=== PATIENT | male | born 1995 | race African-American/Black ===

== ENCOUNTER 2019-05-18 01:13 | Emergency (ER) | payer SELFPAY ==
[~2019-05-18] VITALS: Ht 177.8 cm; Wt 68.0 kg
[2019-05-18 01:15] VITALS: BP 126/73
[2019-05-18] MEDS ORDERED: LIDOCAINE 2% 20 ML VIAL. IJ ONE (02:00)
[2019-05-18] MEDS ORDERED: CLIN300C8 PO (02:24)
--- NOTE | 2019-05-18 02:52 | PHYS DOC ---
Past Medical History Past Medical History: No Pertinent History Past Surgical History: No Surgical History Alcohol Use: None Drug Use: Marijuana Adult General Chief Complaint Chief Complaint: EARACHE/EAR PAIN HPI HPI Patient is a 24 year old m with ear pain. onset a few days ago feels a bump there happened three months ago but it went away on its own Review of Systems Review of Systems Constitutional: Denies fever or chills [] Eyes: Denies change in visual acuity, redness, or eye pain [] HENT: Denies nasal congestion or sore throat [] Respiratory: Denies cough or shortness of breath [] Cardiovascular: No additional information not addressed in HPI [] GI: Denies abdominal pain, nausea, vomiting, bloody stools or diarrhea [] : Denies dysuria or hematuria [] Musculoskeletal: Denies back pain or joint pain [] Integument: Denies rash or skin lesions [] Neurologic: Denies headache, focal weakness or sensory changes [] Endocrine: Denies polyuria or polydipsia [] All other systems were reviewed and found to be within normal limits, except as documented in this note. Current Medications Current Medications Current Medications Medications (Trade) Dose Ordered Sig/Sree Start Time Stop Time Status Last Admin Dose Admin Lidocaine HCl 20 ml 1X ONCE 05/18/19 02:00 05/18/19 02:01 DC 05/18/19 01:57 20 ML Allergies Allergies Allergies Coded Allergies Type Severity Reaction Last Updated Verified Iodine and Iodide Containing Produc Allergy Intermediate 05/18/19 Yes Physical Exam Physical Exam Constitutional: Well developed, well nourished, no acute distress, non-toxic appearance. [] HENT: Normocephalic, atraumatic, rigth ear just behind tragus there is a 2 by 3 cm area of fluctuance, mild erythema and ttp difficult to see tm due to this but visualized was normal Eyes: PERRLA, EOMI, conjunctiva normal, no discharge. [] Neck: Normal range of motion, no tenderness, supple, no stridor. [] Back: No tenderness, no CVA tenderness. [] Extremities: No tenderness, no cyanosis, no clubbing, ROM intact, no edema. [] Neurologic: Alert and oriented X 3, normal motor function, normal sensory function, no focal deficits noted. [] Psychologic: Affect normal, judgement normal, mood normal. [] Current Patient Data Vital Signs Vital Signs Date Time Temp Pulse Resp B/P (MAP) Pulse Ox O2 Delivery O2 Flow Rate FiO2 05/18/19 01:15 97.8 61 16 126/73 (90) 99 Room Air 97.8 EKG EKG [] Radiology/Procedures Radiology/Procedures [] Course & Med Decision Making Course & Med Decision Making Pertinent Labs and Imaging studies reviewed. (See chart for details) []procedure note i and d verbal consent lidocaine 2 percent 1 ml, betadine, 1 cm incision made sebaceous material and pus removed pt tolerated well wound packed return prec discussed wound care instructions given pt tolerated well Dragon Disclaimer Dragon Disclaimer This electronic medical record was generated, in whole or in part, using a voice recognition dictation system. Departure Departure Impression: Primary Impression: Abscess Disposition: 01 HOME, SELF-CARE Condition: STABLE Patient Instructions: Abscess, Care After Scripts Clindamycin Hcl (CLINDAMYCIN HCL) 300 Mg Capsule 1 CAP PO TID, #21 CAP Prov: ADENIKE ABDUL MD 05/18/19 ADENIKE ABDUL MD May 18, 2019 02:52
== END 2019-05-18 03:00 | disposition home or self-care (01) ==
LOC: ER 01:13
DX: H60.01 Abscess of right external ear (principal)
CPT/HCPCS: 69000; 99284; J2001; 10060; 99283

== ENCOUNTER 2020-05-19 12:24 | Emergency (ER) | payer OTHER ==
[~2020-05-19] VITALS: Ht 177.8 cm; Wt 63.6 kg
[~2020-05-19 12:24] MED LIST: CLIN300C8 PO
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
[2020-05-19] MEDS ORDERED: CYCL10TA2 PO (15:25)
[2020-05-19] MEDS ORDERED: NAPR-514 PO (15:25)
== END 2020-05-19 12:55 | disposition left against medical advice (07) ==
LOC: ER 12:24
DX: G89.11 Acute pain due to trauma (principal); M54.2 Cervicalgia; M25.551 Pain in right hip; M25.531 Pain in right wrist; F17.200 Nicotine dependence, unspecified, uncomplicated; F12.90 Cannabis use, unspecified, uncomplicated; Z91.041 Radiographic dye allergy status; V49.88XA Car occupant (driver) (passenger) injured in other specified transport accidents, initial encounter; Y93.89 Activity, other specified; Y92.413 State road as the place of occurrence of the external cause; Y99.8 Other external cause status
CPT/HCPCS: 99283

== ENCOUNTER 2020-05-19 13:17 | Emergency (ER) | payer OTHER ==
[~2020-05-19] VITALS: Ht 177.8 cm; Wt 68.1 kg
[2020-05-19 13:42] VITALS: BP 132/80
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
[2020-05-19 14:25] LABS: BILIRUBIN,URINE NEGATIVE (NEG); CLARITY,URINE CLOUDY; COLOR,URINE YELLOW; NITRITE,URINE NEGATIVE (NEG); PROTEIN,URINE 30 mg/dL (NEG-TRACE)
[2020-05-19] MEDS ORDERED: HYDROcodone/APAP 5/325MG 1 TAB TABLET PO ONE (14:30)
[2020-05-19 14:42] LABS: AMORPHOUS SEDIMENT,UR PRESENT /HPF; BACTERIA,URINE FEW /HPF (0-FEW); RBC,URINE OCC /HPF (0-2); SQUAMOUS EPITHELIAL CELL,UR FEW /LPF; WBC,URINE OCC /HPF (0-4)
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
[2020-05-19] MEDS ORDERED: CYCL10TA2 PO (15:25)
[2020-05-19] MEDS ORDERED: NAPR-514 PO (15:25)
== END 2020-05-19 15:39 | disposition home or self-care (01) ==
LOC: ER 13:17
DX: S16.1XXA Strain of muscle, fascia and tendon at neck level, initial encounter (principal); M25.551 Pain in right hip; M25.531 Pain in right wrist; F17.200 Nicotine dependence, unspecified, uncomplicated; F12.90 Cannabis use, unspecified, uncomplicated; V49.9XXA Car occupant (driver) (passenger) injured in unspecified traffic accident, initial encounter; Y93.89 Activity, other specified; Y92.89 Other specified places as the place of occurrence of the external cause; Y99.8 Other external cause status
CPT/HCPCS: 70450; 72125; 73110; 73502; 81001; 99285

== ENCOUNTER 2020-05-19 17:58 | Emergency (ER) | payer OTHER ==
[~2020-05-19] VITALS: Ht 182.9 cm; Wt 68.1 kg
[~2020-05-19 17:58] MED LIST changes: +CYCL10TA2 PO; +NAPR-514 PO
[2020-05-19 18:36] VITALS: BP 128/77
[2020-05-19] MEDS ORDERED: NAPROXEN 500 MG TABLET PO STA (18:36)
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
[2020-05-19] MEDS ORDERED: NAPROXEN 500 MG TABLET ONE (18:41)
[2020-05-19] MEDS ORDERED: ACETAMINOPHEN 500 MG TABLET PO ONE (18:45)
== END 2020-05-19 18:46 | disposition home or self-care (01) ==
LOC: ER 17:58
DX: M25.531 Pain in right wrist (principal); M25.551 Pain in right hip; F17.200 Nicotine dependence, unspecified, uncomplicated; F12.90 Cannabis use, unspecified, uncomplicated; Z88.1 Allergy status to other antibiotic agents
CPT/HCPCS: 29125; 99283

== ENCOUNTER 2020-07-18 21:28 | Emergency (ER) | payer OTHER ==
[~2020-07-18] VITALS: Ht 177.8 cm; Wt 72.7 kg
[2020-07-18 22:00] VITALS: BP 114/79
[2020-07-18] MEDS ORDERED: LIDOCAINE 1% PF 2 ML VIAL. INJ ONE (22:00)
[2020-07-18] MEDS ORDERED: CLIN150C14 PO (22:09)
[2020-07-18] MEDS ORDERED: HYDR-2761 PO (22:09)
--- NOTE | 2020-07-18 22:10 | PHYS DOC ---
Past Medical History Past Medical History: No Pertinent History Past Surgical History: No Surgical History Smoking Status: Current Every Day Smoker Alcohol Use: None Drug Use: Marijuana General Adult EDM: Chief Complaint: ABSCESS HPI: HPI: Patient is a 25 year old AA male who presents the emergency department with complaints of a cyst inside of his right ear. Patient states he is been seen here before for similar problem. He denies any drainage, fever, or decreased hearing in the affected ear. He rates the pain a 10 out of 10 on the pain scale, he denies any alleviating factors the pain is worse if the area is touched. Review of Systems: Review of Systems: Complete ROS is negative unless otherwise stated in the HPI. Heart Score: Risk Factors: Risk Factors: DM, Current or recent (<one month) smoker, HTN, HLP, family history of CAD, obesity. Risk Scores: Score 0 - 3: 2.5% MACE over next 6 weeks - Discharge Home Score 4 - 6: 20.3% MACE over next 6 weeks - Admit for Clinical Observation Score 7 - 10: 72.7% MACE over next 6 weeks - Early Invasive Strategies Current Medications: Current Medications Medications (Trade) Dose Ordered Sig/Sree Start Time Stop Time Status Last Admin Dose Admin Lidocaine HCl (Xylocaine-Mpf 1% 2ml Vial) 2 ml 1X ONCE 07/18/20 22:00 07/18/20 22:01 07/18/20 21:58 2 ML Allergies: Allergies: Allergies Coded Allergies Type Severity Reaction Last Updated Verified Iodine and Iodide Containing Produc Allergy Intermediate 05/18/19 Yes Physical Exam: PE: Constitutional: Well developed, well nourished, no acute distress, non-toxic appearance. [] HENT: Normocephalic, atraumatic, bilateral external ears normal, nose normal; 1 cm diameter swollen, fluctuant area noted just behind the tragus inside the patient's right ear concerning for infected cyst/abscess, no purulent drainage, no bleeding, [] Eyes: PERRLA, EOMI, conjunctiva normal, no discharge. [] Neck: Normal range of motion, no stridor. [] Cardiovascular:Heart rate regular rhythm Lungs & Thorax: Respirations even and unlabored, no retractions, no respiratory distress Skin: Warm, dry, no rash. [] Extremities: No cyanosis, ROM intact, no edema. [] Neurologic: Alert and oriented X 3, no focal deficits noted. [] Psychologic: Affect normal, judgement normal, mood normal. [] EKG: EKG: [] Radiology/Procedures: Radiology/Procedures: Using a 22-gauge needle 1% lidocaine was injected into the fluctuant area behind the patient's right tragus, a minimal amount of purulent liquid was expressed from the site. The patient did not tolerate the procedure well he reported increased pain and asked to discontinue the procedure Course & Med Decision Making: Course & Med Decision Making Pertinent Labs and Imaging studies reviewed. (See chart for details) [] Dragon Disclaimer: Dragon Disclaimer: This electronic medical record was generated, in whole or in part, using a voice recognition dictation system. Departure Departure Impression: Primary Impression: Abscess of right ear canal Disposition: HOME, SELF-CARE Condition: STABLE Referrals: NO PCP (PCP) Patient Instructions: Abscess, [id number] Additional Instructions: Fill the prescription(s) and use as directed. You may take ibuprofen as needed for pain. Apply warm, moist heat to the area to help decrease discomfort. Follow up with your primary care doctor or Dr. Solomon for further management of your condition, return to the ER sooner if your symptoms worsen or you develop a fever. Scripts Hydrocodone Bit/Acetaminophen (HYDROCODONE-APAP 5-325 ) 1 Tab Tablet 0.5-1 TAB PO PRN Q6HRS PRN for SEVERE PAIN 7-10 for 3 Days, #6 TAB 0 Refills Prov: MARVIN GARY APRN 07/18/20 Clindamycin Hcl (CLINDAMYCIN HCL) 150 Mg Capsule 450 MG PO TID for 7 Days, #63 CAP 0 Refills Prov: MARVIN GARY APRN 07/18/20 Justicifation of Admission Dx: Justifications for Admission: Justification of Admission Dx: N/A MARVIN GARY APRN Jul 18, 2020 22:10
== END 2020-07-18 22:27 | disposition home or self-care (01) ==
LOC: ER 21:28
DX: H66.41 Suppurative otitis media, unspecified, right ear (principal); R60.0 Localized edema; F12.90 Cannabis use, unspecified, uncomplicated; F17.200 Nicotine dependence, unspecified, uncomplicated; Z91.041 Radiographic dye allergy status
CPT/HCPCS: 10060; 99283; J3490

== ENCOUNTER 2021-04-11 18:57 | Emergency (ER) | payer SELFPAY ==
[~2021-04-11] VITALS: Ht 172.7 cm; Wt 74.1 kg
[~2021-04-11 18:57] MED LIST changes: +CLIN150C15 PO; -CLIN300C8 PO; +CLIN300C9 PO; +HYDR-2761 PO
[2021-04-11 19:30] VITALS: BP 120/52
--- NOTE | 2021-04-11 20:08 | RAD ---
Right fifth finger x-rays 3 views HISTORY: Right fifth finger pain after a fall injury. FINDINGS: There is a small cortical avulsion from the palmar cortex at the base of the fifth intermed iate phalanx at the PIP joint likely a small avulsion involving the volar plate or the flexor superfi cialis tendon. No dislocation. Soft tissues unremarkable. IMPRESSION: Fracture at the base of the fifth intermediate phalanx at the PIP joint as described debra elias. Electronically signed by: Kj Bustos MD (04/11/2021 8:05 PM) [facility]
--- NOTE | 2021-04-11 20:30 | PHYS DOC ---
Past Medical History Past Medical History: Other Additional Past Medical Histor: CONCUSSION, PTSD, RIGHT WRIST FRACTURE (RICHY BEGUM Kierra ACQUISITIONS ANALYST) Past Surgical History: No Surgical History (RICHY BEGUM Kierra ACQUISITIONS ANALYST) Smoking Status: Current Every Day Smoker Alcohol Use: None Drug Use: Marijuana (RICHY BEGUM ACQUISITIONS ANALYST) General Adult EDM: Chief Complaint: FINGER INJURY HPI: HPI: Patient is a 25 year old male who presents the ED today with a right pinky finger injury. Patient said he was playing basketball and he fell landing on his right pinky finger. Patient is right-handed. (RICHY BEGUM ACQUISITIONS ANALYST) Review of Systems: Review of Systems: Constitutional: Denies fever or chills. [] Musculoskeletal: Right hand and pinky finger with no obvious deformity. Tenderness diffusely throughout the finger. Full range of motion to the right pinky finger. Adequate ulnar sensation to the right pinky finger. +2 right radial pulse. Cap refill less than 2 seconds the right pinky finger Integument: Denies rash. [] Neurologic: Denies headache, focal weakness or sensory changes. [] Endocrine: Denies polyuria or polydipsia. [] Lymphatic: Denies swollen glands. [] Psychiatric: Denies depression or anxiety. [] (SHYRICHY Kierra ACQUISITIONS ANALYST) Heart Score: C/O Chest Pain: N/A Risk Factors: Risk Factors: DM, Current or recent (<one month) smoker, HTN, HLP, family history of CAD, obesity. Risk Scores: Score 0 - 3: 2.5% MACE over next 6 weeks - Discharge Home Score 4 - 6: 20.3% MACE over next 6 weeks - Admit for Clinical Observation Score 7 - 10: 72.7% MACE over next 6 weeks - Early Invasive Strategies (HOMERTavonRICHY Kierra ACQUISITIONS ANALYST) Allergies: Allergies: Allergies Coded Allergies Type Severity Reaction Last Updated Verified Iodine and Iodide Containing Produc Allergy Intermediate 05/18/19 Yes (SHYRICHY Kierra ACQUISITIONS ANALYST) Physical Exam: PE: Constitutional: Well developed, well nourished, no acute distress, non-toxic appearance. [] HENT: Normocephalic, atraumatic, bilateral external ears normal, oropharynx moist, no oral exudates, nose normal. [] Eyes: PERRLA, EOMI, conjunctiva normal, no discharge. [] Neck: Normal range of motion, no tenderness, supple, no stridor. [] Cardiovascular:Heart rate regular rhythm, no murmur [] Lungs & Thorax: Bilateral breath sounds clear to auscultation [] Abdomen: Bowel sounds normal, soft, no tenderness, no masses, no pulsatile masses. [] Skin: Warm, dry, no erythema, no rash. [] Back: No tenderness, no CVA tenderness. [] Extremities: No tenderness, no cyanosis, no clubbing, ROM intact, no edema. [] Neurologic: Alert and oriented X 3, normal motor function, normal sensory function, no focal deficits noted. [] Psychologic: Affect normal, judgement normal, mood normal. [] (RICHY BEGUM APRN) Current Patient Data: Vital Signs: Vital Signs Date Time Temp Pulse Resp B/P (MAP) Pulse Ox O2 Delivery O2 Flow Rate FiO2 04/11/21 19:30 98.5 57 20 120/52 (74) 96 Room Air 98.5 (RICHY BEGUM APRN) EKG: EKG: [] (RICHY BEGUM APRN) Radiology/Procedures: Radiology/Procedures: []PROCEDURE: FINGER(S) RIGHT Right fifth finger x-rays 3 views HISTORY: Right fifth finger pain after a fall injury. FINDINGS: There is a small cortical avulsion from the palmar cortex at the base of the fifth intermediate phalanx at the PIP joint likely a small avulsion involving the volar plate or the flexor superficialis tendon. No dislocation. Soft tissues unremarkable. IMPRESSION: Fracture at the base of the fifth intermediate phalanx at the PIP joint as described above. Electronically signed by: John Bustos MD (04/11/2021 8:05 PM) [facility] [place] DICTATED and SIGNED BY: JOHN BUSTOS MD DATE: 04/11/[id number] 0 (RICHY BEGUM APRN) Course & Med Decision Making: Course & Med Decision Making Pertinent Labs and Imaging studies reviewed. (See chart for details) This a 25-year-old male patient presenting to the ED today with right pinky finger injury after falling. Right pinky finger x-rays interpreted by r adiologist were noted for fracture at the base of the fifth intermediate phalanx at the PIP joint. Patient was placed in a finger splint by the ED RN, neurovascular exam done by me is normal. Ice elevation encouraged. He has an orthopedic doctor he is following up for wrist fracture. Instructed to follow- up with him. (RICHY BEGUM APRN) Course & Med Decision Making The chart was reviewed. Care and treatment plan made by midlevel provider. I was available for consult. (YASIR LUCIANO DO) Dragon Disclaimer: Dragon Disclaimer: This electronic medical record was generated, in whole or in part, using a voice recognition dictation system. (RICHY BEGUM APRN) Departure Departure Impression: Primary Impression: Fracture of phalanx of finger of right hand Qualified Codes: S62.656A - Nondisplaced fracture of middle phalanx of right little finger, initial encounter for closed fracture Disposition: HOME / SELF CARE / HOMELESS Condition: STABLE Referrals: NO PCP (PCP) follow up with your orthopedic doctor Patient Instructions: Finger Fracture (Phalangeal)-SportsMed Additional Instructions: You have fracture of your right pinky finger. Please follow-up with the orthopedic doctor. Try to ice and elevate the extremity RICHY BEGUM APRN Apr 11, 2021 20:30 YASIR LUCIANO DO Apr 12, 2021 20:20
== END 2021-04-11 20:50 | disposition home or self-care (01) ==
LOC: ER 18:57
DX: S62.656A Nondisplaced fracture of middle phalanx of right little finger, initial encounter for closed fracture (principal); F17.200 Nicotine dependence, unspecified, uncomplicated; Z91.041 Radiographic dye allergy status; W18.39XA Other fall on same level, initial encounter; Y93.67 Activity, basketball; Y92.89 Other specified places as the place of occurrence of the external cause; Y99.8 Other external cause status
CPT/HCPCS: 29130; 73140; 99283

== ENCOUNTER 2022-02-24 11:16 | Emergency (ER) | payer SELFPAY ==
[~2022-02-24] VITALS: Ht 177.8 cm; Wt 68.7 kg
[~2022-02-24 11:16] MED LIST changes: +CLIN-94 PO; -CLIN150C15 PO; +CLIN150C16 PO; -CLIN300C9 PO; +CYCL10TA19 PO; -CYCL10TA2 PO
[2022-02-24 11:24] VITALS: BP 110/72
--- NOTE | 2022-02-24 21:08 | PHYS DOC ---
Past Medical History Past Medical History: Other Additional Past Medical Histor: CONCUSSION, PTSD, RIGHT WRIST FRACTURE (RONNA SPARKS APRN) Past Surgical History: No Surgical History Additional Past Surgical Histo: WRIST SURGERY (RONNA SPARKS STATISTICS INTERN) Smoking Status: Current Every Day Smoker Alcohol Use: None Drug Use: Marijuana (RONNA SPARKS APRN) General Adult EDM: Chief Complaint: HEADACHE HPI: HPI: Patient is a 26-year-old male that presents today with headache and nosebleed. Patient states she has had headaches on and off since Monday, he said he woke up this morning and had a nosebleed, he states he held pressure onto the nose and it stopped bleeding. He states that approximately 2 years ago he had a concus mary and was seen in orthopedic office had some procedures done with his wrist and had medications left over from that such as Fioricet, cyclobenzaprine, meloxicam, and steroids, he said he has taken those medications to help with the pain but that has not relieved the pain. Patient presents here for further evaluation and treatment of his headache. Patient does have 2 children with him today under the age of 4 and he drove himself to the emergency department. (RONNA SPARKS STATISTICS INTERN) Review of Systems: Review of Systems: Constitutional: Denies fever or chills. [] Eyes: Denies change in visual acuity. [] HENT: nose bleed Denies nasal congestion or sore throat. [] Respiratory: Denies cough or shortness of breath. [] Cardiovascular: Denies chest pain or edema. [] GI: Denies abdominal pain, nausea, vomiting, bloody stools or diarrhea. [] : Denies dysuria. [] Musculoskeletal: Denies back pain or joint pain. [] Integument: Denies rash. [] Neurologic: headache, denies focal weakness or sensory changes. [] Endocrine: Denies polyuria or polydipsia. [] Lymphatic: Denies swollen glands. [] Psychiatric: Denies depression or anxiety. [] (RONNA SPARKS STATISTICS INTERN) Heart Score: C/O Chest Pain: No Risk Factors: Risk Factors: DM, Current or recent (<one month) smoker, HTN, HLP, family history of CAD, obesity. Risk Scores: Score 0 - 3: 2.5% MACE over next 6 weeks - Discharge Home Score 4 - 6: 20.3% MACE over next 6 weeks - Admit for Clinical Observation Score 7 - 10: 72.7% MACE over next 6 weeks - Early Invasive Strategies (RONNA SPARKS APRN) Allergies: Allergies: Allergies Coded Allergies Type Severity Reaction Last Updated Verified Iodine and Iodide Containing Produc Allergy Intermediate 05/18/19 Yes (RONNA SPARKS APRN) Physical Exam: PE: Constitutional: Well developed, well nourished, no acute distress, non-toxic appearance. [] HENT: Normocephalic, atraumatic, bilateral external ears normal, oropharynx moist, no oral exudates, nose red [] Eyes: PERRLA, EOMI, conjunctiva normal, no discharge. [] Neck: Normal range of motion, no tenderness, supple, no stridor. [] Cardiovascular:Heart rate regular rhythm, no murmur [] Lungs & Thorax: Bilateral breath sounds clear to auscultation [] Abdomen: Bowel sounds normal, soft, no tenderness, no masses, no pulsatile masses. [] Skin: Warm, dry, no erythema, no rash. [] Back: No tenderness, no CVA tenderness. [] Extremities: No tenderness, no cyanosis, no clubbing, ROM intact, no edema. [] Neurologic: Alert and oriented X 3, normal motor function, normal sensory function, no focal deficits noted. [] Psychologic: Affect normal, judgement normal, mood normal. [] (RONNA SPARKS APRN) Current Patient Data: Vital Signs: Vital Signs Date Time Temp Pulse Resp B/P (MAP) Pulse Ox O2 Delivery O2 Flow Rate FiO2 02/24/22 11:24 98.6 103 18 110/72 (85) 98 Room Air 98.6 (RONNA SPARKS APRN) EKG: EKG: [] (RONNA SPARKS APRN) Radiology/Procedures: Radiology/Procedures: [] (RONNA SPARKS APRN) Course & Med Decision Making: Course & Med Decision Making Pertinent Labs and Imaging studies reviewed. (See chart for details) 1245 patient is asking how long a work-up would be, he states he needs to be out of the department by 2:00 due to family obligations, I did inform him that I feel his symptoms warrant a work-up that would include labs and CT scans, and that could take upwards to 2 hours, he states he is unable to stay due to his obligations at home. He signed out AGAINST MEDICAL ADVICE. (RONNA SPARKS APRN) Dragon Disclaimer: Dragon Disclaimer: This electronic medical record was generated, in whole or in part, using a voice recognition dictation system. (RONNA SPARKS APRN) Departure Departure Impression: Primary Impression: Headache Qualified Codes: R51.9 - Headache, unspecified Disposition: LEFT AGAINST MEDICAL ADVICE Condition: STABLE Attending Signature Attending Signature I have reviewed the PA/STORE SPECIALIST's note and plan of care. I was available for consultation as needed during the patient's visit in the emergency department. I agree with the clinical impression, plan, and disposition. (KYLE CHU DO) RONNA SPARKS APRN Feb 24, 2022 21:08 KYLE CHU DO March 02, 2022 00:56
== END 2022-02-24 12:45 | disposition left against medical advice (07) ==
LOC: ER 11:16
DX: R51.9 Headache, unspecified (principal); R04.0 Epistaxis; F17.200 Nicotine dependence, unspecified, uncomplicated; F43.10 Post-traumatic stress disorder, unspecified; Z91.041 Radiographic dye allergy status
CPT/HCPCS: 99281